=== PATIENT | male | born 1945 | race Caucasian/White ===

== ENCOUNTER → 2016-12-30 | Outpatient (CLI) | payer OTHER, BC ==
[~2016-12-30] MED LIST: ATOR-24 PO; FLEC50TA20 PO; LEVO112T4 PO; MCM600 PO; METO25TA3 PO; TADA5TAB11 PO; TEST1SOL EXT
== END | disposition home or self-care (01) ==
LOC: C.RDSM 14:32
PROVIDERS: ATTEND Physical Medicine & Rehabilitation Sports Medicine
DX: M79.672 Pain in left foot (principal)

== ENCOUNTER → 2017-05-29 | Outpatient (CLI) | payer OTHER, BC ==
--- NOTE | 2017-05-29 10:39 | DIAGNOSTIC IMAGING REPORT ---
(CHEST) THORAX WITHOUT CLINICAL HISTORY: 71 years-old Male presenting with LUNG NODULE ON PREVIOUS CT; ACCESS STATUS. TECHNIQUE: Multidetector CT imaging of the chest was performed without the use of intravenous contrast. IV contrast: None. A dose lowering technique was used consistent with the principles of ALARA (as low as reasonably achievable). COMPARISON: 05/29/2016. CT DOSE (mGy.cm): The estimated cumulative dose is 399.76 mGy.cm. FINDINGS: Payroll And Benefits Analyst topogram: Unremarkable. On soft tissue windows, normal thyroid and thoracic inlet. No axillary, supraclavicular, or mediastinal lymphadenopathy. Evaluation of the bridger limited without intravenous contrast. Atherosclerosis of the aorta. Normal heart size. No pericardial or pleural effusion. Moderate fatty atrophy of the pancreas. Normal liver density. Punctate nonobstructing calculus in the right kidney (series 4 image 319). On lung windows, stable appearance of the bandlike area of consolidation in the lingula, consistent with scarring or atelectasis. Associated cystic change along the peribronchovascular region within this segment, likely further evidence of chronic scarring. No new focal infiltrate or nodule. Focal subpleural nodule in the right apex is unchanged and may in part represent invaginated extrapleural fat. Calcified granuloma noted in the right lower lobe. Subtle findings of mosaic attenuation could suggest small airways disease. Airways patent. On bone windows, degenerative changes of the spine. IMPRESSION: 1. Unchanged appearance of the bandlike consolidation in the lingula consistent with cicatrizing atelectasis. No concerning pulmonary nodule. Electronically signed by: Connor Beck M.D. 05/29/2017 10:37 AM Dictated Date/Time: 05/29/2017 10:30 AM
== END | disposition home or self-care (01) ==
LOC: C.CTS 10:11
PROVIDERS: ATTEND Family Medicine
DX: R91.1 Solitary pulmonary nodule (principal)